=== PATIENT | male | born 1975 ===

== ENCOUNTER 2018-12-01 02:57 | Emergency (ER) | payer SELFPAY ==
--- NOTE | 2018-12-01 03:05 | C.PDOC ---
History Of Present Illness 65 year old male is brought to the ED by EMS for alcohol intoxication. Patient was picked up from the street where he was sleeping. Patient unable to answer questions. Time Seen by Provider: 12/01/18 03:05 Chief Complaint (Nursing): Substance Abuse History Per: EMS History/Exam Limitations: intoxication Onset/Duration Of Symptoms: Hrs Current Symptoms Are (Timing): Still Present Suicide/Self Injury Attempted (Context): None Modifying Factor(s): Alcohol Associated Symptoms: denies: Depression, Suicidal Thoughts, Suicidal Plan Recent travel outside of the [place]: No Additional History Per: EMS Past Medical History Reviewed: Historical Data, Nursing Documentation, Vital Signs Vital Signs: Last Vital Signs Temp 97.5 F L 12/01/18 03:01 Pulse 75 12/01/18 03:01 Resp 20 12/01/18 03:01 BP 111/64 12/01/18 03:01 Pulse Ox 95 12/01/18 03:01 - Medical History PMH: No Chronic Diseases Surgical History: No Surg Hx Family History: States: Unknown Family Hx - Social History Hx Alcohol Use: Yes Hx Substance Use: No Review Of Systems Review Of Systems: ROS cannot be obtained secondary to pt's inabilty to answer questions. Physical Exam - Physical Exam Appears: Non-toxic, No Acute Distress Skin: Normal Color, Warm, Dry Head: Atraumatic, Normacephalic Eye(s): bilateral: Normal Inspection Neck: Normal ROM, Supple Chest: Symmetrical Cardiovascular: Rhythm Regular Respiratory: Normal Breath Sounds, No Rales, No Rhonchi, No Wheezing Extremity: Normal ROM Neurological/Psych: Other (intoxicated, arousable ) Gait: Unable To Assess ED Course And Treatment O2 Sat by Pulse Oximetry: 95 (ON RA) Pulse Ox Interpretation: Normal Reevaluation Time: 06:17 Reassessment Condition: Improved (PT CLEAR SPEECH AND THOUGHT, STEADY GAIT. AO3, NO S/S ACUTE INTOX.) Disposition Counseled Patient/Family Regarding: Diagnosis - Disposition Disposition: HOME/ ROUTINE Disposition Time: 06:17 Condition: IMPROVED Instructions: Alcohol Abuse and Alcoholism (DC) Forms: [facility] (Dutch) - Clinical Impression Clinical Impression: Alcohol intoxication - Scribe Statement The provider has reviewed the documentation as recorded by the Scribe Jordin Mcgee All medical record entries made by the Scribe were at my direction and personally dictated by me. I have reviewed the chart and agree that the record accurately reflects my personal performance of the history, physical exam, medical decision making, and the department course for this patient. I have also personally directed, reviewed, and agree with the discharge instructions and disposition.
[2018-12-01 06:26] VITALS: BP 111/63; PULSE 82; RESP 16; TEMP 98.2; O2SAT 100
== END 2018-12-01 07:05 | disposition home or self-care (01) ==
LOC: C.ER 02:57 → EDBD 02:57 → C.ER 07:05
DX: F10.129 Alcohol abuse with intoxication, unspecified (principal)